=== PATIENT | female | born 1985 | race Caucasian/White ===

== ENCOUNTER 2019-10-10 21:19 | Emergency (ER) | payer SELFPAY ==
[~2019-10-10] VITALS: Ht 162.6 cm; Wt 86.2 kg
[2019-10-10 21:23] VITALS: BP 148/70
== END 2019-10-10 21:37 ==
LOC: MED 21:19
DX: F10.129 Alcohol abuse with intoxication, unspecified (principal); Z00.00 Encounter for general adult medical examination without abnormal findings
CPT/HCPCS: 99283